=== PATIENT | female | born 1935 | race Caucasian/White ===

== ENCOUNTER 2019-02-26 10:32 | Inpatient (IN) | payer OTHER, MEDICAID ==
[~2019-02-26] VITALS: Ht 152.4 cm; Wt 47.2 kg
[2019-02-26] MEDS ORDERED: NAMENDA10 M2 PO (10:36)
[2019-02-26] MEDS ORDERED: MULTI-VITAMINS1 TAB PO (10:36)
[2019-02-26] MEDS ORDERED: MELATONIN3 MG PO (10:36)
[2019-02-26] MEDS ORDERED: ARICEPT5 MG PO (10:36)
[2019-02-26] MEDS ORDERED: COLACE100 MG PO (10:36)
[2019-02-26] MEDS ORDERED: APAP500 MG PO (10:37)
[2019-02-26 10:38] VITALS: Ht 152.4 cm; Wt 47.2 kg
[2019-02-26] MEDS ORDERED: VITAMIN C500 M6 PO (10:38)
[2019-02-26] MEDS ORDERED: ZYP10 PO (10:39)
[2019-02-26] MEDS ORDERED: ZINC SULFATE220 M2 PO (10:39)
--- NOTE | 2019-02-26 10:39 | NUR ---
PER [facility] PT ARRIVED TO FACILITY ON 02/09/19 PT PREVIOUSLY RESIDED AT [facility]. FACILITY STATES SHE NEEDS "G-TUBE DUE TO "POOR INTAKE" PT IS NON VERBAL FULL CODE.
--- NOTE | 2019-02-26 10:59 | NUR ---
RECTAL TEMP 100.2, TYLENOL 650 MG OR ADMIN PER PROTOCOL.
--- NOTE | 2019-02-26 11:02 | NUR ---
PT MOUTH IS DRY, ON FULL CM, IV 20G TO LEFT WRIST, FLUSHED AND PATIENT. PT AWAITING MSE. UNABLE TO GET URINE THROUGH STRAIGHT CATH. VERY MINIMAL URINE IN TUBING AND UNABLE TO COLLECT INTO TUBE.
--- NOTE | 2019-02-26 11:47 | NUR ---
UNABLE TO GET URINE SAMPLE, AWARE
[2019-02-26 11:59] LABS: BASOPHIL % 0.1 % (0-2); PLATELET COUNT 176 x10^3mcL (130-400); RED CELL DISTRIBUTION WIDTH 15.2 % (11.5-14.5)
[2019-02-26 12:03] LABS: ALKALINE PHOSPHATASE 102 U/L (46-116); ALT/SGPT 80 U/L (14-59); AST/SGOT 31 U/L (15-37); BILIRUBIN TOTAL 0.61 mg/dL (0.20-1.00); CALCIUM 8.5 mg/dL (8.5-10.1); CHLORIDE SERUM 124 mmol/L (98-107); CREATININE SERUM 1.1 mg/dL (0.6-1.0); GLUCOSE SERUM 197 mg/dL (74-106); MAGNESIUM 2.6 mg/dL (1.8-2.4); POTASSIUM SERUM 3.5 mmol/L (3.5-5.1)
--- NOTE | 2019-02-26 12:13 | NUR ---
PT SITTING IN SEMI-FOWLERS POSITION, CALM AND COOPERATIVE. OPENING EYES. IV FLUIDS INFUSING WITHOUT SIGNS OF INFILTRATION. IN VIEW OF NURSES STATION AND I WILL CONTINUE TO MONITOR PT.
[2019-02-26 12:26] LABS: ALBUMIN 2.6 g/dL (3.4-5.0); SODIUM SERUM 163 mmol/L (136-145)
--- NOTE | 2019-02-26 13:25 | NUR ---
UNABLE TO OBTAIN BELONGINGS LIST.
--- NOTE | 2019-02-26 13:32 | NUR ---
CALLED AND GAVE REPORT TO BETTIE, ALL QUESTIONS ADDRESSED AT THIS TIME.
[2019-02-26 13:41] LABS: microscopic required? YES; urine erythrocyte 1+ (NEGATIVE)
[2019-02-26 14:31] VITALS: BP 102/58
--- NOTE | 2019-02-26 14:32 | NUR ---
RECEIVED PATIENT FROM ED, VIA GUERNEY ACCOMPANIED BY RN. PATIENT NONVERBAL, UNABLE TO ASSESS ORIENTATION. UNABLE TO MAKE NEEDS KNOWN NOR FOLLOW COMMANDS. MOANS TO PAINFUL STIMULI AND EYES NOT SPONTANEOUS, OPENS EYES OCCASIONALLY. PERRLA NOTED, BRISK 2CM BILAT. MUCOSA DRY. SKIN WARM AND DRY. TELE [address] READING SR 90 W/ OCC PVC. NO S/S OF CHEST PAIN. PERIPHERAL PULSES PALAPBLE W/ WEAK PEDAL PULSES, NO EDEMA. LUNGS DIM TO BASES, O2 SAT 95% ON 4L NC, BREATHING E/U AT REST. BOWEL SOUNDS HYPOACTIVE. SHAH IN PLACE DRAINING DARK YELLOW URINE MINIMAL AMOUNT. BLANCHABLE REDNESS TO BUTTOCKS REGION, RT HEEL DISCOLORATION NOTED. AIR MATTRESS AND HEEL PROTECTORS B/L IN PLACE. PICTURES TAKEN. IV ACCESS TO LW SITE WNL PATENT, D5W INITIATED AND INFUSING WELL AT 100ML/HR. HOB REMAINED SLIGHLTY ELEVATED. CALL LIGHT WITHIN REACH AND INSTRUCTED HOW TO USE, NO INDICATION OF LEARNING. WILL MONITOR FREQUENTLY.
--- NOTE | 2019-02-26 14:51 | NUR ---
RECEIVED PT FROM ER, PT ADMIT FOR SEVERE SEPSIS, DEHYDRATION, UTI. PT IS NONVERBAL, VERY LETHGARIC, ONLY RESPONSIVE TO PAIN STIMULATION, UNABLE TO FOLLOW COMMAND. LUNG SOUND CLEAR BILATEAR, PT IS ON 4L/MIN O2 VIA NC. PO2 95%, NO S/S OF SOB AT THIS TIME, PT IS ON TELE 7, NSR WITH PVC, NO S/S OF CHEST PAIN, BOWEL SOUND PRESENT ALL 4 QUADRANTS, NO DISTENTION, NO TENDER. PEDAL PULSE PRESENT BOTH FEET, NO EDEMA NOTED, SHAH CATH IN PLACE, URINE IS YELLOW. THERE IS BLANCHABLE ERYTHEMA AT COCCYX AREA AND PURPLE DISCOLORATION AT RIGHT HEEL. IV AT LEFT HAND, NO LEAKING, NO INFILTRATION. ALL ADLS ASSIST, ALL NEED MET, CALL LIGHT IN REACH, WILL CONTINUE TO MONTOR.
--- NOTE | 2019-02-26 15:14 | NUR ---
SPOKE TO OPAL NURSE FROM [facility], PATIENT'S LAST BM ACCORDING TO THEIR DOCUMENTATION WAS THIS AM AND REGULAR. ALSO REPORTS THAT PATIENT IS NONVERBAL AT BASELINE, WITH INCREASED LETHARGY TODAY AND POOR ORAL INTAKE.
--- NOTE | 2019-02-26 16:41 | NUR ---
ANIMAL DOCTOR REPORTS BP 89/44. CHARGE NURSE MADE AWARE. SPRING MACHINE OPERATOR GAVINO MADE AWARE.
[2019-02-26 16:46] VITALS: BP 89/44
[2019-02-26 17:22] VITALS: BP 115/60
--- NOTE | 2019-02-26 17:53 | NUR ---
DR BRIDGES WAS AT BEDSIDE, REPORT GIVEN TO DR. ADAMSON RECIEVED TO OBTAIN CONSENT FOR EGD/PEG AND NPO EX MEDS. DAUGHTER OVI ATTEMPTED TO CALL, VOICE MESSAGE LEFT.
[2019-02-26 18:20] VITALS: BP 117/66
--- NOTE | 2019-02-26 18:21 | NUR ---
AFTER 500ML BOLUS, BP NOW 117/66. PATIENT STILL LETHARGIC, NO SIGNIFICANT CHANGE IN MENTAL STATUS CONDITION. GOWN CHANGED, OPTIFOAM APPLIED TO COCCYX/SACRAL REGION. IV SITE TO LW WNL. US ABD IN PROGRESS AT BEDSIDE. WILL CONT TO MONITOR AND ENDORSE TO NOC NURSE.
--- NOTE | 2019-02-26 19:12 | NUR ---
OBTAINED TELEPHONE CONSENT FROM DAUGHTER OVI MORRIS FOR EGD/PEG, SECONDARY RN ELLIS VERIFIED CONSENT. PREOP CHECKLIST INITIATED. BEDSIDE REPORT GIVEN TO BROOKE NATARAJAN NURSE. PATIENT RESTING WITH HOB ELEVATED, NO SIGNIFICANT CHANGE IN CONDITION.
--- NOTE | 2019-02-26 19:30 | NUR ---
PT. SLEEPING, SNORING. VERY LETHARGIC. RESPONDS TO TACTILE AND PAIN STIMULI. AWAKENED WITH SLIGHT STERNAL RUB. OPENS EYES SPONTANEOUSLY. PT. ON 4L/NC. BREATH SOUNDS DIMINISHED SAV. RESP. EVEN, UNLABORED. PT. NSR ON TELE #7, OCCASIONAL PVC'S NOTED. NO EDEMA TO BLE. PEDAL PULSES MODERATE. ABD. SOFT AND FLAT, BOWEL SOUNDS ACTIVE. BLANCHABLE REDNESS TO COCCYX AREA. OPTIFOARM IN PLACE. IVF D5 INFUSING AT 100CC/HR. BED LOW LAYING HEAD OF BED 35 DEGREES. CALL LIGHT WITHIN REACH. ALARM ON.
[2019-02-26 20:36] LABS: CALCIUM 7.8 mg/dL (8.5-10.1); CARBON DIOXIDE 29.6 mmol/L (21-32); CHLORIDE SERUM 126 mmol/L (98-107); CREATININE SERUM 0.8 mg/dL (0.6-1.0); GLUCOSE SERUM 159 mg/dL (74-106); POTASSIUM SERUM 3.4 mmol/L (3.5-5.1)
[2019-02-26 20:39] VITALS: BP 97/53
[2019-02-26 20:42] LABS: SODIUM SERUM 161 mmol/L (136-145)
--- NOTE | 2019-02-26 21:22 | NUR ---
SPOKE WITH PT.'S DAUGHTER, ANDERS, UPDATED HER ON THE PT. NEW PHONE NUMBER LISTED IDEAL FOR CONTACT WHILE SHE IS AT WORK [phone]. ALL CONCERNS ADDRESSED AT THIS TIME. REQUESTING TO HAVE RESIDENT SPEAK WITH HER IN THE MORNING AFTER BED HUDDLE.
--- NOTE | 2019-02-27 01:46 | NUR ---
PT. MADE COMFORTABLE. BEING TURNED AND REPOSITIONED PER PROTOCOL. PT. MORE AWAKE. MOVING AROUND IN BED. IVF INFUSING ORDERED. WILL CONTINUE TO MONITOR.
--- NOTE | 2019-02-27 06:05 | NUR ---
PT. HAD UNEVENTFUL NIGHT. MOSTLY SLEPT. MORE AWAKE THIS MORNING. IV SITE REMAINS INTACT. BED LOW LAYING. CALL LIGHT WITHIN REACH. WILL ENDORSE PT. CARE TO INCOMING NURSE.
[2019-02-27 06:26] VITALS: BP 106/56
[2019-02-27 06:36] LABS: CALCIUM 7.8 mg/dL (8.5-10.1); CARBON DIOXIDE 28.4 mmol/L (21-32); CHLORIDE SERUM 120 mmol/L (98-107); CREATININE SERUM 0.8 mg/dL (0.6-1.0); GLUCOSE SERUM 171 mg/dL (74-106); SODIUM SERUM 158 mmol/L (136-145)
[2019-02-27 07:11] VITALS: BP 112/59
[2019-02-27 07:16] LABS: BASOPHIL % 0 % (0-2); PLATELET COUNT 119 x10^3mcL (130-400); RED CELL DISTRIBUTION WIDTH 15.2 % (11.5-14.5)
--- NOTE | 2019-02-27 07:20 | NUR ---
PT RECEIVED, LYING IN BED AWAKE/ NON VERBAL. BREATHING UNLABORED ON 4LPM/NC. IVF INFUSING, NO REDNESS OR SWELLING TO IV SITE. ON AIR MATRESS, TURN Q2H. BILATERAL HEEL PROTECTORS IN PLACE. HOB SLIGHTLY ELEVATED. NPO FOR PROCEDURE. FALL PRECAUTIONS. BED IN LOW POSITION, CALL LIGHT IN REACH. WILL CONTINUE TO MONITOR.
--- NOTE | 2019-02-27 07:55 | NUR ---
SPOKE WITH GI BUCCARO REGARDING CHECKING WITH DR. BRIDGES IF HE HAD SPOKEN WITH DR. VILLASEÑOR REGARDING +TROP, SINCE MD'S NOTE DID NOT SPECIFY IF PT WAS CARDIAC CLEARED. RN SHE WOULD LET DR. BRIDGES KNOW.
--- NOTE | 2019-02-27 10:00 | NUR ---
GUILLERMINA SIN MADE AWARE THAT PT'S DAUGHTER WANTED TO SPEAK WITH HER REGADING PT'S STATUS SINCE SHE WANTED TO DECIDE IF SHE SHOULD FLY IN TO SEE HER MOTHER. NO STATED SHE WOULD SPEAK WITH DR. VILLASEÑOR FIRST THEN CALL DAUGHTER.
--- NOTE | 2019-02-27 10:40 | NUR ---
NEW IV STARTED TO LFOREARM, 22 GAUGE, FLUSHED WITH 10ML NS WITH GOOD BLOOD RETURN.
[2019-02-27 11:53] VITALS: BP 116/55
--- NOTE | 2019-02-27 11:53 | NUR ---
PT WENT DOWN TO GI LAB IN NO ACUTE DISTRESS
--- NOTE | 2019-02-27 13:27 | NUR ---
SCREEN FOR LOW MINDY SCALE AT RISK CONTINUE PRESSURE ULCER INJURY PREVENTION INTERVENTIONS: -TURN AND REPOSITION PATIENT Q 2H OFFLOAD LEFT AND RIGHT HIPS -ASSESS AND MONITOR SKIN CONDITION DURING POSITION CHANGE -OFFLOAD BILATERAL HEELS BY PLACING PILLOWS UNDER CALVES AT ALL TIMES, UNLESS OTHERWISE CONTRAINDICATED -PRESSURE REDISTRIBUTION SURFACE THERAPY -KEEP SKIN CLEAN AND DRY AT ALL TIMES. -APPLY OPTIFOAM TO SACRALCOCCYX PREVENTION
--- NOTE | 2019-02-27 13:45 | NUR ---
PT BACK FROM GI LAB PT LYING IN BED, EYES CLOSED, AROUSABLE TO PAIN. ABD COVERED WITH ABD BANDAGE AND ABD BINDER, CDI. NO PAIN NOTED AT THIS TIME. BREATHING UNLABORED ON 3LPM. IVF RUNNING, NO SWELLING, ERYTHEMA TO IV SITE. HOB SLIGHTLY ELEVATED, BED IN LOW POSITION, CALL LIGHT IN REACH, WILL CONTINUE TO MONITOR
--- NOTE | 2019-02-27 15:10 | NUR ---
PHYSICAL THERAPY NOTE ATTEMPTED FOR PHYSICAL THERAPY SCHEDULED SESSION; PATIENT WAS TAKEN FOR MEDICAL PROCEDURE AT THE TIME
[2019-02-27 16:37] VITALS: BP 102/50
--- NOTE | 2019-02-27 17:57 | NUR ---
PT WAS SEEN FOR DYSPHAGIA. PT HAD SEVERE POCKETING FOR PUREE DIET. PT IS AT HIGH RISK OF ASPIRATION. RECOMMENDATION CONTINUE WITH ALTERNATE MODE OF FEEDING.
--- NOTE | 2019-02-27 18:42 | NUR ---
PT RESTING IN BED, AROUSABLE TO VERBAL STIMULI. NO ACUTE DISTRESS. RESPIRATIONS UNLABORED ON 4LMP VIA NC. HOB ELEVATED. TUBE FEEDING STARTED ORDERED, INFUSING AT 30 ML/HR. SHAH CATHETER DRAINING TO GRAVITY/ ABMER. IVF INFUSING, NO REDNESS/ SWELLING NOTED. ON AIR MATRESS. FALL AND ASPIRATION PRECAUTIONS MAINTAINED. BED IN LOW POSITION, CALL LIGHT WITHIN REACH. WILL ENDORSE TO ON COMING SHIFT.
[2019-02-27 20:43] VITALS: BP 108/50
--- NOTE | 2019-02-27 20:51 | NUR ---
RECEIVED PT IN BED VERY LETHARGIC EYES OPEN WITH VERBAL STIMULI , V/S 108/55 HR 86 RESP 20. LUNG SOUNDS DIMINISHED , ON 4L N/C SAT 99% TEL NUMBER 7 SHOWS NSR HR 86, NO ACUTE DISTRESS NOTED, S/P PEG PLACEMENT , DRESSING C/D/I PT HAS ABD BINDER FOR SAFETY , ON GLUERNA FEEDING AT 30ML/HR NO RESIDUAL NOTED, AT THE MOMENT , SHAH TO GRAVITY DRAINING WELL CLEAR YELLOW URINE , PT'S ON AIR MATTRESS , BLANCHABLE ERRYTHEMA NOTED TO BUTTOCK OPTIFOAM APPLIED , BILAT ELBOWS AND HEELS ELEVATED ON THE PILLOWS WITH HEEL PTOTECTOR .PIV INTACT INFUSING WLL , HL PATENT , CALL LIGHT WITHIN PT'S REACH , WILL TURN PT Q2.
--- NOTE | 2019-02-28 02:55 | NUR ---
NO RESIDUAL NOTED ADVANCED FEEDING TO 40ML/HR, REPOSITION PT TO LEFT SIDE , PT TOLERATED WELL .
[2019-02-28 05:25] VITALS: BP 118/53
--- NOTE | 2019-02-28 06:25 | NUR ---
P'S IN BED REPOSITIONED Q2, GT PATENT NO RESIDUAL NOTED GT RA 40ML/HR . TELE NSR , PIV INTACT INFUSING WELL , ALL DUE MEDS GIVEN NO REACTION NOTED,
[2019-02-28 07:00] LABS: CALCIUM 7.2 mg/dL (8.5-10.1); CARBON DIOXIDE 23.4 mmol/L (21-32); CHLORIDE SERUM 117 mmol/L (98-107); CREATININE SERUM 0.6 mg/dL (0.6-1.0); GLUCOSE SERUM 149 mg/dL (74-106); POTASSIUM SERUM 3.2 mmol/L (3.5-5.1); SODIUM SERUM 151 mmol/L (136-145)
[2019-02-28 07:22] LABS: BASOPHIL % 0.1 % (0-2); PLATELET COUNT 132 x10^3mcL (130-400)
--- NOTE | 2019-02-28 07:30 | NUR ---
PT RECEIVED LYING IN BED/ HOB ELEVATED, RESTING WITH EYES CLOSED, AROUSABLE TO VERBAL STIMULI. TUBE FEED RUNNING AT 40ML/HR, ALEXYS WELL. SHAH INTACT, AMADOR URINE, TO GRAVITY. IVF RUNNING. BED IN LOW POSITION, CALL LIGHT WITHIN REACH. WILL CONTINUE TO MONITOR
[2019-02-28 07:35] LABS: RED CELL DISTRIBUTION WIDTH 15.2 % (11.5-14.5)
[2019-02-28 07:41] VITALS: BP 116/59
--- NOTE | 2019-02-28 09:53 | NUR ---
PT HAD SMALL BM, PLACED NEW OPTIFOAM ON COCCYX. PT RESTING IN BED, BED IN LOW POSITION, CALL LIGHT WIHTIN REACH. WILL CONT TO MONITOR
--- NOTE | 2019-02-28 10:15 | NUR ---
PT ENTERAL FEEDING INCREASED FROM 40-50 ML/HR. 0 RESIDUAL. HOB ELEVATED, ASPIRATION PRECAUTIONS MAINTAINED. ALEXYS WELL. WILL CONTINUE TO MONITOR
[2019-02-28 12:07] VITALS: BP 119/60
--- NOTE | 2019-02-28 13:05 | NUR ---
PT RESTING IN BED, EYES CLOSED. AROUSABLE TO VERBAL STIMULI. FEEDING RUNNING, ALEXYS WELL. IVF RUNNING, SITE CDI. HOB ELEVATED, ASPIRATION PRECAUTIONS/ FALL PRECAUTIONS MAINTAINED. BED IN LOW POSITION, CALL LIGHT IN REACH. WILL CONTINUE TO MONITOR
--- NOTE | 2019-02-28 18:21 | NUR ---
PT RESTING IN BED, EYES CLOSED, PT AROUSABLE TO VERBAL STIMULI. BREATHING EVEN AND UNLABORED. GLUCERNA RUNNING THROUGH GT AT 50 ML/HR/ LAST RESIDUAL 100ML/ REPLACED, NEW BAG HUNG. ALEXYS WELL. GT SITE, CDI. IVF RUNNING, NO REDNESS, SWELLING NOTED. SHAH CATHETER CARE DONE. SHAH INTACT, FLOWING TO GRAVITY. ASPIRATION/ FALL PRECAUTIONS MAINTAINED. HOB ELEVATED, BED IN LOW POSITION, CALL LIGHT WITHIN REACH. WILL ENDORSE TO ON COMING NURSE.
[2019-02-28 20:11] VITALS: BP 116/52
--- NOTE | 2019-02-28 21:04 | NUR ---
PT CURRENTLY RESTING IN BED, NO ACUTE DISTRESS. A/O X1, DROWSY. HX OF ALZHEIMERS. TELE #7 SHOWING SINUS RHYTHM. PULSES PALPABLE IN ALL EXTREMITIES, NO EDEMA NOTED. LUNG SOUNDS DIMINISHED BILATERALLY, NO RESPIRATORY DISTRESS NOTED. O2 VIA NC AT 2L. BOWEL SOUNDS ACTIVE, LAST BM 02/28/19. PEG TO TUBE FEEDING, 10ML OF RESIDUAL NOTED. TUBE FEEDING OF GLUCERNA AT 50ML/HR, FWF 100ML Q4H. SHAH CATHETER IN PLACE, YELLOW URINE NOTED. GENERALIZED WEAKNESS, AIR MATTRESS IN PLACE. OPTIFOAM TO BILATERAL ELBOWS AND COCCYX. BILATERAL HEEL PROTECTORS IN PLACE. IV PATENT AND INTACT. BED IN LOWEST POSITION, SIDE RAILS UP X2, CALL LIGHT WITHIN REACH. WILL CONTINUE TO MONITOR.
--- NOTE | 2019-03-01 00:03 | NUR ---
PT CURRENTLY RESTING IN BED, NO ACUTE DISTRESS. WILL CONTINUE TO MONITOR.
[2019-03-01 05:22] VITALS: BP 123/57
[2019-03-01 06:16] LABS: BASOPHIL % 0.1 % (0-2); PLATELET COUNT 173 x10^3mcL (130-400)
--- NOTE | 2019-03-01 06:40 | NUR ---
PT SLEPT PERIODICALLY THROUGHOUT NIGHT, NO ACUTE DISTRESS. ALL NEEDS MET AND ATTENDED TO. NO SIGNIFICANT CHANGES. IV PATENT AND INTACT. CLEANED AND REPOSITIONED WITH LISA MARISCAL. BED IN LOWEST POSITION, SIDE RAILS UP X2, CALL LIGHT WITHIN REACH. WILL ENDORSE CARE TO ONCOMING NURSE.
[2019-03-01 06:49] LABS: CALCIUM 7.6 mg/dL (8.5-10.1); CHLORIDE SERUM 112 mmol/L (98-107); CREATININE SERUM 0.6 mg/dL (0.6-1.0); GLUCOSE SERUM 174 mg/dL (74-106); POTASSIUM SERUM 3.7 mmol/L (3.5-5.1); SODIUM SERUM 145 mmol/L (136-145)
[2019-03-01 06:53] LABS: RED CELL DISTRIBUTION WIDTH 14.9 % (11.5-14.5)
--- NOTE | 2019-03-01 07:37 | NUR ---
RECEIVED PT LYING IN BED, EYES CLOSED. AROUSABLE TO VERBAL STIMULI. RESPIRATIONS EVEN AND UNLABORED, PT ON 2.5 LPM/ NC. GLUCERNA 1.2 RUNNING AT 50ML/HR/ ALEXYS WELL. IVF RUNNING AT 50ML/HR. BED IN LOW POSITION, HOB ELEVATED, CALL LIGHT WITHIN REACH. WILL CONTINUE TO MONITOR.
[2019-03-01 07:46] VITALS: BP 114/57
--- NOTE | 2019-03-01 11:48 | NUR ---
PT RESTING IN BED, EYES CLOSED. AROUSABLE TO TOUCH. GLUCERNA RUNNING AT 50ML/HR. IVF RUNNING AT 50ML/HR. PT APPEARS TO BE IN NO DISTRESS. ASPIRATION/ FALL PRECAUTIONS MAINTAINED. BED IN LOW POSITION, HOB ELEVATED, CALL LIGHT WITHIN REACH. WILL CONTINUE TO MONITOR.
[2019-03-01 12:32] VITALS: BP 123/61
--- NOTE | 2019-03-01 12:33 | NUR ---
PT HAD SMALL SOFT BM, OPTIFOAM REMOVED. PT BUTTOCKS CLEAN, DRY, AND INTACT. NEW OPTIFOAM PLACED TO PREVENT SKIN BREAKDOWN. WILL CONTINUE TO MONITOR
--- NOTE | 2019-03-01 12:54 | NUR ---
Initial Nutrition Assessment Dx: Severe sepsis, dehydration PMHx: Dementia, Schizophrenia, Alzheimer's PSHx: None Labs: BG 174H, Ca 7.6L, ALT 80H, Trop + x2, WBC 13.4H Meds: Aricept, Cephulac, Merrem, Namenda, Pepcid, Theragran, Vit C, Zn sulfate, Zofran, Zyprexa Nutrition support: Glucerna 1.2 @ 50 mL/Hr with 100 mL FWF Q4H TF Intake: (02/28) 1197 mL I and O: (03/01) 3022/1950 +1072 (02/28) 2160/600 +1560 Ht: 152 cm Wt: 46.2 kg BMI: 20.3 (Underweight for advanced age) IBW: 100# %IBW: 101% UBW: unable to obtain Age: 83 y/o female Food Allergies: NKFA Skin: Blanchable redness to coccyx B/L elbows, discoloration to R heel Gray: 13 Edema: None GI: Last BM x 2 (03/01) Nursing trigger received for appears underweight/malnourished, poor PO intake > 3 days. Per H&P, pt. admitted with lethargy and poor PO intake with pt. family requesting for nutrition support access via G-Tube. PEG placement was conducted on 02/27/19 and Glucerna running at goal rate 50 mL/Hr with good tolerance. No reports of GI distress associated with nutrition support. GRV 100 mL per RN notes. Problem with: No c/o N/V/D/C Problems with: Chewing: Y Swallowing: Y Recent wt change: None %wt change: N/A Vitamin/Supplement use: Vit C, MVI, Zn sulfate Special diet at home: Previously on PO diet, but now with nutrition support vai PEG Physical activity: None Education: Diet education not appropriate at this time. Estimated Nutritional Needs Based on actual body weight 46.2 kg: Energy: 8775-4614 kcal/d (25-30 kcal/kg-geriatric adult maintenance) Protein: 46-55 g/d (1.0-1.2 g/kg)-geriatric maintenance and preservation of lean body mass Fluid: 9725-3937 ml/d (1 ml/kcal-fluid balance) or per doctor Nutrition Diagnosis 1. Increased nutrient needs r/t history of poor appetite and PO intake AEB reported PO intake prior to admission meeting <75% estimated requirements and needs for nutrition support initiation. Intervention 1. Continue Glucerna 1.2 @ 50 mL/Hr with 100 mL FWF Q4H, which provides >75% estimated kcal and protein needs. Monitor/Evaluate Goal: TF intake at least 75% of estimated needs Monitor: TF intake/tolerance, Labs, GI function, skin integrity F/U in 2-3 days as high risk (03/03-03/04)
--- NOTE | 2019-03-01 12:54 | NUR ---
Intervention 1. Continue Glucerna 1.2 @ 50 mL/Hr with 100 mL FWF Q4H, which provides >75% estimated kcal and protein needs.
--- NOTE | 2019-03-01 16:30 | NUR ---
PT LYNG IN BED, EYES CLOSED. AROUSABLE TO TOUCH. PT IN NO DISTRESS. CHANGED GT FEEDING BAG/ GLUCERNA RUNNING AT 5OML/HR, ALEXYS WELL. 20ML RESIDUAL NOTED AND RETURNED. ASPIRATION/FALL PRECAUTIONS MAINTAINED. BED IN LOW POSITION, CALL LIGHT IN REACH. WILL CONTINUE TO MONITOR.
[2019-03-01 16:36] VITALS: BP 115/51
--- NOTE | 2019-03-01 18:34 | NUR ---
PT LYING IN BED, WITH EYES CLOSED. AROUSABLE TO TOUCH. BREATHING EVEN AND UNLABORED, ON RA. APPEARS TO BE IN NO DISTRESS. GLUCERNA RUNNING AT 50ML/HR. RESIDUAL <20/ RETURNED/ ALEXYS WELL. IVF RUNNING AT 50ML/HR. NO REDNESS/ SWELLING AT IV SITE. SHAH CATHETER INTACT/ CATHETER CARE PERFORMED, DRAINING TO GRAVITY. SKIN IS CDI. BED IN LOW POSITION, REPOSITIONED FOR COMFORT, CALL LIGHT IN REACH. WILL ENDORSE TO ON COMING NURSE.
--- NOTE | 2019-03-01 19:16 | NUR ---
NURSING CO-SIGN THE DOCUMENTATION ENTERED BY THE ORIENTEE HAS BEEN REVIEWED. REVIEWED/CO-SIGNED BY: Yancy Oakley DOCUMENTATION DONE BY:ARAMIS HOFFMANN
[2019-03-01 19:42] VITALS: BP 130/66
--- NOTE | 2019-03-01 20:16 | NUR ---
PT CURRENTLY RESTING IN BED, NO ACUTE DISTRESS. DROWSY, NONVERBAL. HX OF DEMENTIA/ALZHEIMERS. TELE #7 SHOWING SINUS TACHYCARDIA. PULSES PALPABLE IN ALL EXTREMITIES, NO EDEMA NOTED. LUNG SOUNDS DIMINISHED IN BILATERAL BASES, NO RESPIRATORY DISTRESS NOTED. O2 VIA NC AT 2L. BOWEL SOUNDS ACTIVE, LAST BM 03/01/19. PEG TO TUBE FEEDING, 60ML OF RESIDUAL NOTED. TUBE FEEDING OF GLUCERNA AT 50ML/HR, FWF 100ML Q4H. SHAH CATHETER IN PLACE, YELLOW URINE NOTED. GENERALIZED WEAKNESS. BLANCHABLE ERRYTHEMA TO COCCYX, OPTIFOAM DRESSING IN PLACE. RIGHT HEEL DARK DISCOLORATION, BILATERAL HEEL PROTECTORS IN PLACE. BED IN LOWEST POSITION, SIDE RAILS UP X2, CALL LIGHT WITHIN REACH. WILL CONTINUE TO MONITOR.
--- NOTE | 2019-03-02 00:26 | NUR ---
PT CURRENTLY RESTING IN BED, NO ACUTE DISTRESS. WILL CONTINUE TO MONITOR.
--- NOTE | 2019-03-02 02:38 | NUR ---
BOWEL MOVEMENT NOTED, PT CLEANED AND REPOSITIONED. WOUND PHOTOS DOCUMENTED. NO ACUTE DISTRESS. BED IN LOWEST POSITION, SIDE RAILS UP X2, CALL LIGHT WITHIN REACH. WILL CONTINUE TO MONITOR.
[2019-03-02 04:46] VITALS: BP 114/53
[2019-03-02 06:20] LABS: BASOPHIL % 0.4 % (0-2); PLATELET COUNT 187 x10^3mcL (130-400)
[2019-03-02 06:33] LABS: CALCIUM 7.8 mg/dL (8.5-10.1); CARBON DIOXIDE 26.7 mmol/L (21-32); CHLORIDE SERUM 110 mmol/L (98-107); CREATININE SERUM 0.6 mg/dL (0.6-1.0); GLUCOSE SERUM 145 mg/dL (74-106); POTASSIUM SERUM 4.1 mmol/L (3.5-5.1); SODIUM SERUM 144 mmol/L (136-145)
--- NOTE | 2019-03-02 06:34 | NUR ---
PT SLEPT PERIODICALLY THROUGHOUT NIGHT, NO ACUTE DISTRESS. ALL NEEDS MET AND ATTENDED TO. NO SIGNIFICANT CHANGES. IV PATENT AND INTACT. BED IN LOWEST POSITION, SIDE RAILS UP X2, CALL LIGHT WITHIN REACH. WILL ENDORSE CARE TO ONCOMING NURSE.
--- NOTE | 2019-03-02 07:20 | NUR ---
RECEIVED PT IN NO ACUTE DISTRESS. SLEEPING BUT AROUSABLE TO VERBAL AND TACTILE STIMULUS. RESP EVEN AND UNLABORED ON 3L O2 VIA NC. NO PAIN NOTED. IVF INFUSING, NO REDNESS OR WELLING TO L WRIST IV. LFA SALINE LOCKED. SHAH CATHETER DRAINING YELLOW URINE TO GRAVITY. ASPIRATION AND FALL PRECAUTIONS. ON AIR MATTRESS, TURNED Q2H. TF INFUSING AT 50 ML/HR, PT TOLERATING WELL. OPTIFOAM TO BILAT ELBOWS AND COCCYX. BILAT HEEL PROTECTORS IN PLACE. BED IN LOW POSITION, CALL LIGHT WITHIN REACH. WILL CONTINUE TO MONITOR.
[2019-03-02 07:37] VITALS: BP 112/67
--- NOTE | 2019-03-02 10:28 | NUR ---
PT HAD BM, CLEANED AND REPOSITIONED. NEW OPTIFOAM APPLIED TO COCCYX FOR BLANCHABLE ERYTHEMA.
[2019-03-02] MEDS ORDERED: MERREM IV1 GM INJ (11:09)
--- NOTE | 2019-03-02 12:03 | NUR ---
PT RESTING IN BED WITH EYES CLOSED. AROUSABLE. BREATHING EVEN AND UNLABORED ON O2 2LPM VIA NC. IVF INFUSING, NO REDNESS OR SWELLING TO IV SITE. HOB ELEVATED. FALL AND ASPIRATION PRECAUTIONS. SHAH CLAMPED FOR BLADDER TRAINING. CALL LIGHT WITHIN REACH. WILL CONTINUE TO MONITOR.
[2019-03-02 12:12] VITALS: BP 126/65
[2019-03-02 13:18] VITALS: BP 126/65
--- NOTE | 2019-03-02 15:47 | NUR ---
PHYSICAL THERAPY DAILY NOTES CO-SIGN All documentation done by the Oven Drier Tender for 03/02/19 has been reviewed. I agree with the documentation. Reviewed/Co-Signed by: Anais Abdi PT Documentation Done by:GIOVANY BATEMAN PTA
--- NOTE | 2019-03-02 16:48 | NUR ---
PT HAD ANOTHER SMALL SOFT BM, CLEANED AND REPOSITIONED. NEW OPTIFOAM APPLIED TO COCCYX. NEW TUBE FEEDING ALSO SET UP. RESIDUAL 20 ML, REPLACED. HOB ELEVATED. CALL LIGHT WITHIN REACH. WILL CONTINUE TO MONITOR.
[2019-03-02 17:07] VITALS: BP 119/65
--- NOTE | 2019-03-02 17:19 | NUR ---
ATTEMPTED TO GET A HOLD OF PT'S DAUGHTER ANDERS TO UPDATE REGARDING TRANSFER BACK TO [facility]. VOICE MESSAGE LEFT.
--- NOTE | 2019-03-02 17:31 | NUR ---
[facility] PT GOING TO ROOM 123-A. ACCEPTING PHYSICIAN IS DR. RIVERA. [facility] SET TO [employer]PPLY CLERK PT AT 2100.
--- NOTE | 2019-03-02 18:25 | NUR ---
PT HAD ANOTHER SMALL BM, CLEANED AND REPOSITIONED. NEW OPTIFOAM APPLIED. PICTURES TAKEN AND PLACED IN CHART. PT CHANGED INTO TRANSFER GOWN AND TRANSFER BLANKET GIVEN. HOB ELEVATED. CALL LIGHT WITHIN REACH. WILL ENDORSE TO ONCOMING SHIFT.
--- NOTE | 2019-03-02 19:30 | NUR ---
PT IS AWAKE, NON VERBAL. ONLY GRUNTS. DOES NOT FOLLOW COMMANDS. TELE #7, NSR. NO SIGN OF DISTRESS NOTED. LUNGS CLEAR BUT DIMINSHED AT SAV BASES. ON 3L NC, NO SIGN OF RESP DISTRESS. EQUAL CHEST RISE AND FALL. NO SIGN OF RESP DISTRESS. BOWEL SOUNDS PRESENT x4. PEG TUBE ON L ABD WALL, PROTECTED ON WITH ABD BINDER. GLUCERNA RUNNING AT GOAL RATE, 50ML/HR. ONLY 10CC OF RISIDUAL, REPLACED. PT TOLERATING FEEDING WELL. COCCXY PROTECTED WITH AN OPTIFOM, SAV HEELS ON HEEL PROTECTORS. ON AN AIR MATTRESS. NO SIGN OF PAIN NOTED. TWO IVS NOTED ON L ARM. ON L WRIST, FLUIDS RUNNING PER EMAR. SALINE LOCKED ON THE LFA. BOTH PATENT AND INTACT. BED IS AT LOWEST SETTING. CALL LIGHT WITHIN REACH. [facility]
--- NOTE | 2019-03-02 20:00 | NUR ---
D/C SHAH. REMOVED 10CC FROM [place]. CATH WAS INTACT. 250CC OF CLEAR YELLOW URINE WAS IN BAG. PT TOLERATED WELL. WILL CONTINUE TO MONTIOR.
[2019-03-02 21:07] VITALS: BP 126/64
--- NOTE | 2019-03-02 23:10 | NUR ---
PREMIER TO CT SCAN TECHNOLOGIST PT. REPORT AND PACKET GIVEN TO TRANSPORT. IV WAS SALINE LOCKED. TUBE FEEDING WAS D/C AND EMETERIO VALVE WAS LOCKED OFF TO PT. PT WAS CLEANED UP D/T VOIDING POST D/C SHAH. TELE MONITOR WAS REMOVED AND RETURNED TO TELE ROOM. ID BANDS REMOVED. ROOM CHECKED FOR BELONGINGS AND NONE NOTED. PT WAS CALM WHEN LEAVING.
== END 2019-03-02 23:30 | DRG 871 ==
LOC: ED 10:32 → DU 13:00
PROVIDERS: Emergency Medicine; Internal Medicine Gastroenterology; Internal Medicine Nephrology; ADMIT Internal Medicine
PROC: 0DH63UZ Insertion of Feeding Device into Stomach, Percutaneous Approach (ICD-10-PCS; principal; 2019-02-27 13:30)
DX: A41.9 Sepsis, unspecified organism (principal); G93.41 Metabolic encephalopathy; E43 Unspecified severe protein-calorie malnutrition; I21.A1 Myocardial infarction type 2; K29.71 Gastritis, unspecified, with bleeding; N39.0 Urinary tract infection, site not specified; N17.9 Acute kidney failure, unspecified; E87.0 Hyperosmolality and hypernatremia; E87.3 Alkalosis; E86.0 Dehydration; B96.23 Unspecified Shiga toxin-producing Escherichia coli [E. coli] [STEC] as the cause of diseases classified elsewhere; R62.7 Adult failure to thrive; G30.9 Alzheimer's disease, unspecified; F02.80 Dementia in other diseases classified elsewhere, unspecified severity, without behavioral disturbance, psychotic disturbance, mood disturbance, and anxiety; Z68.20 Body mass index [BMI] 20.0-20.9, adult
CPT/HCPCS: 92526-GN; 92610-GN; 97110-GP; 97530-GP; G0378; J1200; J1610; J1956; J2185; J2250; J2310; J3010; J3480; J3490; J7030; J7040; J7060; J7070; Q0092